=== PATIENT | female | born 1985 | race Two or more races ===

== ENCOUNTER 2023-09-13 14:22 | Emergency (ER) | payer OTHER ==
[2023-09-13 14:35] VITALS: BP 130/87; PULSE 83; RESP 20; TEMP 98.2; BMI 25.7
[2023-09-13 15:57] LABS: BASO % 1.3 % (0-2.0); EOS % 4.6 % (0-4.5); HEMATOCRIT 34.7 % (32.4-45.2); HEMOGLOBIN 11.2 GM/dL (10.7-15.3); LYMPH % 22.3 % (8-40); MCH 25.3 pg (25.7-33.7); MCHC 32.3 g/dl (32.0-36.0); MEAN CELL VOLUME 78.4 fl (80-96); MEAN PLT VOLUME 6.5 fl (7.5-11.1); MONO % 8.6 % (3.8-10.2); NEUT % 63.2 % (42.8-82.8); PLATELET COUNT 383 10^3/uL (134-434); RBC 4.42 M/mm3 (3.60-5.2); RDW 14.6 % (11.6-15.6); WHITE BLOOD COUNT 8.1 K/mm3 (4.0-10.0)
[2023-09-13 16:29] LABS: POTASSIUM 4.4 mmol/L (3.5-5.1)
[2023-09-13 16:31] LABS: ALBUMIN 3.3 g/dl (3.4-5.0); BLOOD UREA NITROGEN 12.9 mg/dL (7-18); CALCIUM 8.3 mg/dL (8.5-10.1)
[2023-09-13 16:34] LABS: CREATININE 0.6 mg/dL (0.55-1.3)
[2023-09-13 16:36] LABS: BILIRUBIN,TOTAL 0.3 mg/dL (0.2-1); TOT PROT 6.7 g/dl (6.4-8.2)
== END 2023-09-13 18:30 | disposition home or self-care (01) ==
LOC: JER 14:22
DX: R09.81 Nasal congestion (principal); R05.1 Acute cough; R09.3 Abnormal sputum; J34.89 Other specified disorders of nose and nasal sinuses; R09.82 Postnasal drip; J00 Acute nasopharyngitis [common cold]
CPT/HCPCS: 36415; 71046-TC-FY; 80053; 84703; 85025; 99284-25